=== PATIENT | female | born 1960 | race Caucasian/White ===

== ENCOUNTER 2016-12-08 08:14 | Emergency (ER) | payer BC, OTHER ==
[2016-12-08] MEDS ORDERED: KETOROLAC 30 MG/ML VIAL IM ONE (08:52)
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
[2016-12-08] MEDS ORDERED: HYDROCODONE/APAP 5/325MG TABLET PO ONE (10:23)
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
== END 2016-12-08 10:36 | disposition home or self-care (01) ==
LOC: ER 08:14
DX: S29.019A Strain of muscle and tendon of unspecified wall of thorax, initial encounter (principal); S39.012A Strain of muscle, fascia and tendon of lower back, initial encounter; M85.88 Other specified disorders of bone density and structure, other site; V47.0XXA Car driver injured in collision with fixed or stationary object in nontraffic accident, initial encounter
CPT/HCPCS: 99283; 96372; 99284; 72100; 72072; J1885

== ENCOUNTER 2018-05-22 06:54 | Emergency (ER) | payer BC ==
--- NOTE | 2018-05-22 07:15 | Emergency Department Record ---
History of Present Illness - General Chief complaint: Pain Stated complaint: RIGHT SHOULDER PAIN, SPASMS Time Seen by Provider: 05/22/18 06:59 Source: Patient Mode of Arrival: Ambulatory Limitations: No limitations - History of Present Illness Initial comments: Pt to ED with pain to the right shoulder. Pt is right hand dominate and works ont [employer] for [employer]. 2 years on the job but has a new position over the past weeks. Repetitive motion with arms above head. Has pain in the right upper shoulder area. No fall or injury/trauma. No hx dislocation. Pain radiates from shouler to thumb and index finger. Hx of "carpal tunnel". States "it tingles like when you come in from the cold". Shoulder pain is worse with rotation of the head to the right. No CP or FLAKITA. Pt has been taking Motrin 600mg 4 times a day for a chronic right hip issue. Pt has been see twice for this shoulder complaint at her work clinic by an RN. No other complaints. MD Complaint: Extremity pain Onset/Timin -: Week(s) Location: Right, Shoulder Radiation: Distal Severity scale (1-10): >10 Quality: Sharp Consistency: Constant Improves with: Nothing Worsens with: Exertion, Weight bearing Associated Symptoms: Denies other symptoms - Related Data Previous Rx's Medication Instructions Recorded Diazepam [Valium] 5 mg PO Q8H 4 Days #12 tab 05/22/18 Ibuprofen [Motrin Liq] 600 mg PO Q8H PRN #120 susp 05/22/18 Allergies Allergy/AdvReac Type Severity Reaction Status Date / Time No Known Drug Allergies Allergy Unverified 03/21/18 15:23 Travel Screening - Travel/Exposure Within Last 30 Days Have you traveled within the last 30 days?: No Review of Systems Reviewed: No additional complaints except as noted below Constitutional: Denies: Fever, Night sweats, Weakness Eyes: Denies: Eye pain ENT: Denies: Ear pain Respiratory: Denies: Cough, Wheezes Cardiovascular: Denies: Chest pain, Dyspnea on exertion, Palpitations Gastrointestinal: Denies: Abdominal pain Musculoskeletal: Reports: As per HPI Skin: Denies: Lesions, Rash Neurological: Reports: As per HPI. Denies: Headache Past Medical History - SOCIAL HISTORY Smoking Status: Current every day smoker Alcohol Use: None Drug Use: None - RESPIRATORY Hx Respiratory Disorders: No - CARDIOVASCULAR Hx Cardio Disorders: No - NEURO Hx Seizures: Yes (high school) - GI Comment:: gastric bypass - Hx Genitourinary Disorders: No - ENDOCRINE Hx Diabetes: No Hx Thyroid Disease: No - MUSCULOSKELETAL Hx Musculoskeletal Disorders: Yes Hx Arthritis: Yes - PSYCH Hx Psych Problems: Yes Hx Anxiety: Yes Hx Depression: Yes - HEMATOLOGY/ONCOLOGY Hx Anemia: No Hx Blood Disorders: No Hx Bruising: No Hx Cancer: No Family Medical History Any Significant Family History?: Yes Hx Cancer: Grandparents Physical Exam - General General Appearance: Alert, Oriented x3, Cooperative, Mild distress Limitations: No limitations - Head Head exam: Atraumatic, Normocephalic - Eye Eye exam: Normal appearance, PERRL, Conjunctival injection, EOMI. negative: Nystagmus, Periorbital tenderness Pupils: Normal accommodation - ENT ENT exam: Normal exam, Mucous membranes moist, Normal external ear exam, Normal orophraynx, TM's normal bilaterally - Neck Neck exam: Normal inspection, Full ROM. negative: Lymphadenopathy, Tenderness - Respiratory Respiratory exam: Normal lung sounds bilaterally. negative: Chest wall tenderness, Rales, Rhonchi, Wheezes - Cardiovascular Cardiovascular Exam: Regular rate, Normal rhythm - GI/Abdominal GI/Abdominal exam: Soft, Normal bowel sounds. negative: Distended, Guarding, Rebound, Tenderness - Rectal Rectal exam: Deferred - exam: Deferred - Extremities Extremities exam: Normal inspection, Tenderness, Other (tender with supraspinatous spasm right, no skin lesions. ) Image of Full Body: 1 - tenderness with muscle spasm - Back Back exam: Reports: Normal inspection - Neurological Neurological exam: Alert, CN II-XII intact, Normal gait, Oriented X3, Reflexes normal, Other - Psychiatric Psychiatric exam: Normal affect, Normal mood. negative: Agitated, Anxious - Skin Skin exam: Normal color. negative: Rash Course Vital Signs 05/22/18 06:59 Temperature 97.7 F Pulse Rate 65 Respiratory 20 Rate Blood Pressure 127/91 Pulse Ox 94 L Medical Decision Making - Management Options MDM Management: No Additional Work-up Planned - Data Complexity MDM Data: X-Ray Ordered and/or Reviewed - Medical Decision Making Discharge Instructions: Return to ED if your symptoms worsen or if you have any concerns. Valium as directed. 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 Discussed Motrin at home. Hx gastric bypass. Discussed not taking Motrin in pill form and using liquid dose to avoid ulcers. Will add Valium as muscle relaxer and follow up with work doctor. Do not take Valium while working, driving, or with alcohol. Pt understands and agrees. Disposition Disposition: Discharge Clinical Impression: Muscle spasm of right shoulder Disposition: Home, Self-Care Return To Work/School Note Provided: Yes Condition: (1) Good Prescriptions: Diazepam [Valium] 5 mg PO Q8H 4 Days #12 tab Ibuprofen [Motrin Liq] 600 mg PO Q8H PRN #120 susp PRN Reason: Pain - Mild (1-4) Forms: Patient Portal Access Quality - Quality Measures Quality Measures: N/A - Blood Pressure Screening Does Patient Have Any of the Following: No Blood Pressure Classification: Hypertensive Reading Systolic Measurement: 127 Diastolic Measurement: 91 Screening for High Blood Pressure: < Pre-Hypertensive BP, F/U Documented > [ G8950] Pre-Hypertensive Follow-up Interventions: Follow-up with rescreen every year. ( stop tobacco. Follow with your PMD), Lifestyle modifications. Lifestyle Modification: Dietary Sodium Restriction
[2018-05-22] MEDS ORDERED: DIAZEPAM 5 MG TABLET PO ONE (08:08)
--- NOTE | 2018-05-22 20:40 | RADIOLOGY REPORT ---
EXAM: SHOULDER, RIGHT HISTORY: PAIN. TECHNIQUE: Three views of the right shoulder were performed. FINDINGS: There is osteopenia. No evidence of fracture or dislocation. No lytic or blastic lesion. IMPRESSION: NEGATIVE RIGHT SHOULDER EXAMINATION. JOB NUMBER: [id number] [facility]
== END 2018-05-22 08:22 | disposition home or self-care (01) ==
LOC: ER 06:54
DX: M62.838 Other muscle spasm (principal); M25.511 Pain in right shoulder; F17.210 Nicotine dependence, cigarettes, uncomplicated; Z98.84 Bariatric surgery status
CPT/HCPCS: 99283

== ENCOUNTER 2018-06-01 01:21 | Emergency (ER) | payer BC ==
--- NOTE | 2018-06-01 01:46 | Emergency Department Record ---
History of Present Illness - General Chief complaint: Pain Stated complaint: SHOULDER PAIN-SEEN LAST WEEK Time Seen by Provider: 06/01/18 01:45 Source: Patient Mode of Arrival: Ambulatory Limitations: No limitations - History of Present Illness Initial comments: 57 yo female returns to ED for evaluation of right shoulder pain after returning to upper extremity use while at work. 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 Patient reports a history of arthritis. Patient was seen 1 week ago, underwent radiographs were negative. Patient reports that the Valium she was prescribed helped with her pain symptoms, and the patient reports that she has an appointment with her PCP in 4 days for further evaluation. MD Complaint: Joint pain Onset/Timin -: Week(s) Location: Right History of Same: Yes Radiation: Distal Quality: Aching, Other Consistency: Constant, Getting worse Improves with: Immobilization, Rest Worsens with: Exertion, Other Associated Symptoms: Denies other symptoms - Related Data Previous Rx's Medication Instructions Recorded Ibuprofen [Motrin Liq] 600 mg PO Q8H PRN #120 susp 05/22/18 Diazepam [Valium] 5 mg PO Q8H PRN #10 tab 06/01/18 Allergies Allergy/AdvReac Type Severity Reaction Status Date / Time No Known Drug Allergies Allergy Unverified 03/21/18 15:23 Travel Screening - Travel/Exposure Within Last 30 Days Have you traveled within the last 30 days?: No - Travel Symptoms Symptom Screening: None Review of Systems Constitutional: Denies: Chills, Fever, Malaise, Night sweats Eyes: Denies: Eye discharge, Eye pain ENT: Denies: Congestion, Ear pain Respiratory: Denies: Cough, Dyspnea Cardiovascular: Denies: Chest pain, Dyspnea on exertion Endocrine: Denies: Fatigue, Heat or cold intolerance Gastrointestinal: Denies: Abdominal pain, Nausea, Vomiting Genitourinary: Denies: Incontinence, Retention Musculoskeletal: Reports: Arthralgia. Denies: Back pain, Gout, Joint swelling Skin: Denies: Bruising, Change in color Neurological: Denies: Abnormal gait, Confusion, Headache, Seizure Psychiatric: Denies: Anxiety Hematological/Lymphatic: Denies: Anemia, Blood Clots Past Medical History - SOCIAL HISTORY Smoking Status: Current every day smoker Alcohol Use: None Drug Use: None - RESPIRATORY Hx Respiratory Disorders: No - CARDIOVASCULAR Hx Cardio Disorders: No - NEURO Hx Seizures: Yes (high school) - GI Comment:: gastric bypass - Hx Genitourinary Disorders: No - ENDOCRINE Hx Diabetes: No Hx Thyroid Disease: No - MUSCULOSKELETAL Hx Musculoskeletal Disorders: Yes Hx Arthritis: Yes - PSYCH Hx Psych Problems: Yes Hx Anxiety: Yes Hx Depression: Yes - HEMATOLOGY/ONCOLOGY Hx Anemia: No Hx Blood Disorders: No Hx Bruising: No Hx Cancer: No Family Medical History Any Significant Family History?: Yes Hx Cancer: Grandparents Physical Exam - General General Appearance: Alert, Oriented x3, Cooperative, Mild distress Limitations: No limitations - Head Head exam: Atraumatic, Normocephalic, Normal inspection Head exam detail: negative: Abrasion, Contusion, Olvera's sign, General tenderness, Hematoma, Laceration - Eye Eye exam: Normal appearance. negative: Conjunctival injection, Periorbital swelling, Periorbital tenderness, Scleral icterus - ENT Ear exam: negative: Auricular hematoma, Auricular trauma Nasal Exam: negative: Active bleeding, Discharge, Dried blood, Foreign body Mouth exam: negative: Drooling, Laceration, Muffled voice, Tongue elevation - Neck Neck exam: Normal inspection. negative: Meningismus, Tenderness - Respiratory Respiratory exam: Normal lung sounds bilaterally. negative: Rales, Respiratory distress, Rhonchi, Stridor - Cardiovascular Cardiovascular Exam: Regular rate, Normal rhythm, Normal heart sounds - GI/Abdominal GI/Abdominal exam: Soft. 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 Compartments are soft on examination of the forearm and upper extremity.). negative: Calf tenderness, Pedal edema - Back Back exam: Denies: CVA tenderness (R), CVA tenderness (L) - Neurological Neurological exam: Alert, Normal gait, Oriented X3 - Psychiatric Psychiatric exam: Normal affect, Normal mood - Skin Skin exam: Normal color. negative: Abrasion Type of lesion: negative: abrasion Course Vital Signs 06/01/18 01:29 Temperature 97.6 F Pulse Rate [ 78 Pulse Ox Probe] Respiratory 16 Rate Blood Pressure 125/74 [Left Arm] Pulse Ox 100 - Reevaluation(s) Reevaluation #1: 06/01/18 01:52 Patient's symptoms appear consistent with shoulder strain and overuse. Previous radiographs reviewed from 05/22/18, negative for an acute process. Will prescribe Valium as as directed as well as work release until seen by her PCP for further evaluation. Patient appears stable for discharge at this time. Disposition Disposition: Discharge Clinical Impression: Right shoulder strain Qualifiers: Encounter type: initial encounter Qualified Code(s): S46.911A - Strain of unspecified muscle, fascia and tendon at shoulder and upper arm level, right arm , initial encounter Disposition: Home, Self-Care Condition: (2) Stable Instructions: Rotator Cuff Injury (ED) Additional Instructions: Return to ED if your symptoms worsen or if you have any concerns. Valium as directed, Ibuprofen as prescribed. Follow-up with employee health in 3-5 days. Prescriptions: Diazepam [Valium] 5 mg PO Q8H PRN #10 tab PRN Reason: Spasms Forms: Patient Portal Access Time of Disposition: 01:46 Quality - Quality Measures Quality Measures: N/A - Blood Pressure Screening Does Patient Have Any of the Following: No Blood Pressure Classification: Pre-Hypertensive BP Reading Systolic Measurement: 125 Diastolic Measurement: 74 Screening for High Blood Pressure: < Pre-Hypertensive BP, F/U Documented > [ G8950] Pre-Hypertensive Follow-up Interventions: Referral to alternative/primary care provider.
== END 2018-06-01 01:55 | disposition home or self-care (01) ==
LOC: ER 01:21
DX: S46.911A Strain of unspecified muscle, fascia and tendon at shoulder and upper arm level, right arm, initial encounter (principal); F17.210 Nicotine dependence, cigarettes, uncomplicated; X50.0XXA Overexertion from strenuous movement or load, initial encounter; Y99.0 Civilian activity done for income or pay
CPT/HCPCS: 99282

== ENCOUNTER 2018-08-11 19:27 | Emergency (ER) | payer BC ==
[2018-08-11] MEDS ORDERED: ACETAMINOPHEN W/ CODEINE 300MG/30MG TABLET PO ONE (19:59)
--- NOTE | 2018-08-11 20:03 | Emergency Department Record ---
History of Present Illness - General Chief complaint: Extremity Problem Stated complaint: BICEP PAIN Time Seen by Provider: 08/11/18 19:45 Source: Patient Mode of Arrival: Ambulatory Limitations: No limitations - History of Present Illness Initial comments: The patient is here due to R bicep pain. She has had a hx of R shoulder and Bicep injury for about 3 months and did have an MRI and PT for it. The PT stopped last week and she is scheduled to see an Orthopedic doctor in 11 days thru work comp because she was told she will need an operation. Now she states the pain is worse. Per the patient 2 nights ago she was at home and felt pain to the R bicep and felt a pain like a rubber band snapping. Since there was increased pain to the bicep and slight bruising. There is no weakness or numbness. MD Complaint: Extremity pain Onset/Timin -: Days(s) Location: Right, Arm History of Same: No Radiation: None Severity scale (1-10): >10 Quality: Aching Consistency: Constant Improves with: Nothing Worsens with: Exertion Associated Symptoms: Denies other symptoms - Related Data Home Medications Medication Instructions Recorded Confirmed Last Taken Cholecalciferol (Vitamin D3) 50,000 unit PO WEEKLY 08/11/18 08/11/18 Unknown [Vitamin D] Zolpidem Tartrate [Ambien] 10 mg PO QHS 08/11/18 08/11/18 Unknown Allergies Allergy/AdvReac Type Severity Reaction Status Date / Time No Known Drug Allergies Allergy Verified 08/11/18 19:43 Travel Screening - Travel/Exposure Within Last 30 Days Have you traveled within the last 30 days?: No - Travel/Exposure Within Last Year Have you traveled outside the [place] in the last year?: No - Additonal Travel Details Have you been exposed to anyone with a communicable illness?: No - Travel Symptoms Symptom Screening: None Review of Systems Constitutional: Denies: Chills, Fever Eyes: Denies: Eye discharge ENT: Denies: Congestion, Ear pain Respiratory: Denies: Cough, Dyspnea Past Medical History - SOCIAL HISTORY Smoking Status: Current every day smoker Alcohol Use: Rare Drug Use: None - RESPIRATORY Hx Respiratory Disorders: No - CARDIOVASCULAR Hx Cardio Disorders: No - NEURO Hx Neuro Disorders: Yes Hx Seizures: Yes (high school) - GI Hx GI Disorders: Yes Comment:: gastric bypass - Hx Genitourinary Disorders: No - ENDOCRINE Hx Diabetes: No Hx Thyroid Disease: No - MUSCULOSKELETAL Hx Musculoskeletal Disorders: Yes Hx Arthritis: Yes - PSYCH Hx Psych Problems: Yes Hx Anxiety: Yes Hx Depression: Yes - HEMATOLOGY/ONCOLOGY Hx Hematology/Oncology Disorders: No Hx Anemia: No Hx Blood Disorders: No Hx Bruising: No Hx Cancer: No Family Medical History Any Significant Family History?: No Hx Cancer: Grandparents Physical Exam - General General Appearance: Alert, Oriented x3, Cooperative, No acute distress - Head Head exam: Atraumatic, Normocephalic, Normal inspection - Eye Eye exam: Normal appearance, PERRL - Neck Neck exam: Normal inspection, Full ROM. negative: Tenderness - Respiratory Respiratory exam: Normal lung sounds bilaterally. negative: Respiratory distress - Cardiovascular Cardiovascular Exam: Regular rate, Normal rhythm, Normal heart sounds - Extremities Extremities exam: Normal capillary refill, Tenderness (There is mild tenderness to the R bicep. She is able to flex at the elbow and shoulder with mild pain. The bicep does not appear to be fully ruptured at this time.), Other (The R arm is NVI.). negative: Normal inspection (There is slight bruising and swelling to the R bicep. ) Course Vital Signs 08/11/18 08/11/18 19:37 19:46 Temperature 98.5 F 98.5 F Pulse Rate [ 86 Pulse Ox Probe] Respiratory 16 16 Rate Blood Pressure 136/84 [Left Arm] Pulse Ox 99 99 - Reevaluation(s) Reevaluation #1: I did explain to the patient that she will need to keep the R arm in a sling for a week and use ice to the bicep. Due to having Gastric Bypass she can only take Tylenol for pain. She is to try to get her Ortho appointment moved up to next week due to the need for surgery. 08/11/18 20:08 Disposition Disposition: Discharge Clinical Impression: Injury of tendon of biceps Disposition: Home, Self-Care Condition: (2) Stable Instructions: Arthralgia (ED) Additional Instructions: Please use the arm sling for 7 days and ice the R shoulder and bicep. Please use the TYlenol # 3 as directed and then just Tylenol for pain. Please see your ORthopedic doctor next week for further evaluation. Forms: Patient Portal Access Time of Disposition: 20:03 Quality - Quality Measures Quality Measures: N/A - Blood Pressure Screening View Details: Yes Does Patient Have Any of the Following: No Blood Pressure Classification: Pre-Hypertensive BP Reading Systolic Measurement: 136 Diastolic Measurement: 84 Screening for High Blood Pressure: < Pre-Hypertensive BP, F/U Documented > [ [id number]] Pre-Hypertensive Follow-up Interventions: Referral to alternative/primary care provider.
== END 2018-08-11 20:26 | disposition home or self-care (01) ==
LOC: ER 19:27
DX: S46.201A Unspecified injury of muscle, fascia and tendon of other parts of biceps, right arm, initial encounter (principal); F17.210 Nicotine dependence, cigarettes, uncomplicated; X58.XXXA Exposure to other specified factors, initial encounter
CPT/HCPCS: 99282

== ENCOUNTER 2018-11-06 13:00 | Inpatient (IN) | payer BC ==
[2018-11-22] MEDS ORDERED: FAMOTIDINE 20MG TABLET PO ONE (06:00)
[2018-11-22] MEDS ORDERED: METOCLOPRAMIDE 10 MG TABLET PO ONE (06:00)
[2018-11-22] MEDS ORDERED: CELECOXIB 100 MG CAPSULE PO ONE (06:00)
[2018-11-22] MEDS ORDERED: CEFAZOLIN 2 Gram 2 GM/50 ML BAG IVPB ONE (06:00)
[2018-11-22] MEDS ORDERED: MECLIZINE 25 MG TABLET PO ONE (06:00)
[2018-11-29] MEDS ORDERED: CEFAZOLIN 2 Gram 2 GM/50 ML BAG IVPB ONE (06:00)
[2018-11-29] MEDS ORDERED: MECLIZINE 25 MG TABLET PO ONE (06:00)
[2018-11-29] MEDS ORDERED: FAMOTIDINE 20MG TABLET PO ONE (06:00)
[2018-11-29] MEDS ORDERED: METOCLOPRAMIDE 10 MG TABLET PO ONE (06:00)
[2018-11-29] MEDS ORDERED: CELECOXIB 100 MG CAPSULE PO ONE (06:00)
[2018-11-29 13:25] LABS: HEMATOCRIT 29.8 % (35.0-47.0); HEMOGLOBIN 8.5 gm/dl (11.6-16.0)
[2018-11-29] MEDS ORDERED: NALOXONE 0.4 MG/1 ML VIAL IVP PRN (13:30)
[2018-11-29] MEDS ORDERED: SENNOSIDES/DOCUSATE SODIUM UD CAPSULE PO PRN (13:30)
[2018-11-29] MEDS ORDERED: MAGNESIUM HYDROXIDE 30 ML UDC PO PRN (13:30)
[2018-11-29] MEDS ORDERED: HYDROMORPHONE HCL 2 MG/ML VIAL IV PRN (13:30)
[2018-11-29] MEDS ORDERED: AL HYDROX/MAG HYDROX 30ML UD PO PRN (13:30)
[2018-11-29] MEDS ORDERED: TRAMADOL HCL 50 MG TABLET PO PRN ×2 (13:30)
[2018-11-29] MEDS ORDERED: ZOLPIDEM TARTRATE 5 MG TABLET PO PRN (13:30)
[2018-11-29] MEDS ORDERED: ONDANSETRON HCL IV 4 MG/2 ML VIAL IVP PRN (13:30)
[2018-11-29] MEDS ORDERED: DIPHENHYDRAMINE HCL 25 MG CAPSULE PO PRN (13:30)
[2018-11-29] MEDS ORDERED: METOCLOPRAMIDE HCL 10 MG/2 ML VIAL IVP PRN (13:30)
[2018-11-29] MEDS ORDERED: HYDROCODONE/APAP 5/325MG TABLET PO PRN (13:33)
[2018-11-29] MEDS ORDERED: OXYCODONE HCL/APAP 5MG/325MG TABLET PO PRN (13:33)
[2018-11-29] MEDS: HYDROCODONE/APAP 5/325MG TABLET PO PRN (14:13)
[2018-11-29 14:28] LABS: ABO GROUP O; ANTIBODY SCREEN NEGATIVE (NEGATIVE); RH TYPE POSITIVE
[2018-11-29] MEDS: RINGERS SOLUTION,LACTATED 1,000 ML IV SCH (14:32)
[2018-11-29] MEDS ORDERED: ACETAMINOPHEN 1,000 MG/100 ML BTL IV ONE (14:37)
[2018-11-29] MEDS ORDERED: RINGERS SOLUTION,LACTATED 1,000 ML IV PRN (16:19)
--- NOTE | 2018-11-29 17:22 | Rehab Evaluation ---
Patient Information - Patient Information Diagnosis: R Hip OA Ordered Treatment: PT Evaluate and Treat Status: Initial Evaluation Surgery: Yes (R DAMIAN) Date of Surgery: 11/29/18 History: Detail (Pt. reports history of hip degenerative changes.) Past Med/Cheryl Hx Detail: Detail (Pt. reports recent R RTC (August 2018) repair with a three pound weight resitriction currently. Pt. has had multiple knee scopes R. Pt. notes history of low blood pressure.) Past Medical/Surgical Hx: PAST MEDICAL/SURGICAL HISTORY Past Surgical History shoulder sx bilat CTR gastric bypass hyst right knee scope PMH - Respiratory Hx Respiratory Disorders No PMH - Cardiovascular Hx Cardiovascular Disorders No Exercise Tolerance Good PMH - Neuro Hx Neurological Disorders Yes Hx Seizures Yes: high school PMH - GI Hx Gastrointestinal Disorders Yes Hx Gastroesophageal Reflux Yes: from motrin takes tums with relief Comment: gastric bypass PMH - Hx Genitourinary Disorders No Comment: S/P hyst PMH - Endocrine Hx Endocrine Disorders No Hx Diabetes No Hx Thyroid Disease No PMH - Musculoskeletal Hx Musculoskeletal Disorders Yes Hx Arthritis Yes PMH - Psych Hx Psychiatric Problems Yes Hx Anxiety Yes Hx Depression Yes PMH - Hematology/Oncology Hx Hematology/Oncology No Disorders Hx Anemia No Hx Blood Disorders No Hx Bruising No Hx Cancer No Premorbid Status: Detail (Slowly progressive.) Social History: Detail (Pt. works for [employer], is currently on worker's compensation for her shoulder. Pt. is to stay ~ two weeks with her daughter following her DAMIAN , then stay another two weeks with her son. Both daughter and son live in a ranch-style home with handicap accessible bathrooms. Pt. has a front wheeled walker, single point cane, commode, and reports she will have two steps to ascend to enter the home.) Precautions: [place], Fall (Posterior lateral hip precautions following DAMIAN) - Time With Patient Total Time Spent With Patient (Min): 60 Treatment Procedures: Detail (Physical Therapy Evaluation Completed. Pt. was left supine with call light available, B IPC, cryo right hip, nursing was notified of pt.'s response to upright positioning. Given pt.'s PMH of multiple knee scopes on ipsilateral side, recent R RTC repair affecting bed mobility, poor understanding of hip precautions, independent living after first 2-4 weeks , and with evolving characteristics of low hemoglobin and hypotensive response to seated positioning, the evaluation complextity is rated at moderate.) Subjective Information - Subjective Information Per Patient (Pt. was supine with semi-reclined head rest at start of evaluation. Pt. reported 3/10 pain to start. She denied SOB, dizziness, nausea, and could feel and move her toes. Pt. was A&O x3 and wanted to try to stand and relieve "pressure" at her hip. Pt. is having OP PT at [facility] in [place].) Objective Data - Pain Pain Present: Yes Pain Intensity: 3 Pain Scale Used: Numeric (1 - 10) - Mental Status Patient Orientation: Oriented x3 - Visual Perception Appears within normal limits for therapeutic activities - ROM Other (Pt. has limited AROM for the right shoulder secondary to weakness from recent RTC repair. Pt. was not assessed for active Right hip ROM secondary to DAMIAN and precautions. LLE and LUE were WFL actively all planes.) - Strength/Tone Other (RUE 3+/5 grossly secondary to pain. LUE 5/5. LLE 5/5. RLE not tested for break testing.) - Coordination Appears within normal limits for therapeutic activities - Bed Mobility Needs Assist (Pt. required min assist x1 and constant VC to appropriately perform bed mobility. PT held patients right leg and cue pt. to avoid forward trunk lean when transitioning from supine to seated (right side of bed). Pt. required multiple cues to flex her right knee and avoid SLR with seated pivot transfer. Pt. became dizzy with BP drop upon seated (no longer than 2 minutes) and agreed to lay back in bed. Vitals were taken once pt. was supine and BP was found stable by nursing and SPO2 was steady at 97%. Pt. required mod assist x2 with repositioning to head of bed once supine via towel slide transfer.) - Transfers Needs Assist (Pt. was not assessed for sit to stand transfer due to subjective complaints of dizziness once seated and BP drop.) - Balance Balance Sitting: Fair (Pt. required multiple VC once seated to avoid breaking her hip precaution and exhibited excessive left lateral shift.) Balance Standing: Poor (Not assessed.) - Sensation Intact - Gait Detail (Not assessed due to hypotensive response to seated positioning.) - ADL's/IADL's Detail (Not assessed.) - Special Tests No Therapy Assessment - Therapy Assessment Detail (Pt. exhibits poor safety awareness, right sided (LE and UE) weakness limiting effective bed mobility, poor tolerance to upright positioning secondary to hypotensive response.) Patient Education - Patient Education Teaching Topic: Equipment Use (Pt. was instructed to contact her family to bring her AD she will use at home for practice. Pt. was instructed on hip precautions and prevention.), Exercise/Activity, Precautions Teaching Method: Discussion, Demonstration Teaching Recipient: Patient Barriers To Learning: None Problem List - Problem List Physical Therapy Problem List: Detail (1) UE and LE weakness limiting bed mobility/transfers. 2) Inability to assess ambulation due to hypotensive response to sitting. 3) Poor safety awareness. 4) Dependent on VC to avoid breaking hip precautions.) Goals - Goals Physical Therapy Goals: 1) Pt. will be independent with bed mobility and transfers. 2) Pt. will independently ambulate household distances with appropriate AD without gait deviation or increased fall risk. 3) Pt. will appropriately ambulate over two steps using AD without LOB. 4) Pt. will demonstrate good understanding of body positioning to avoid breaking hip precautions. 5) Pt. will be independent with intial exercises for HEP. Prognosis - Prognosis Good Plan - Plan Physical Therapy Plan: Pt. will be seen 1-2x per day for inpatient PT until all goals met for safe D/C to home environment.
[2018-11-29] MEDS: FERROUS SULFATE 325 MG TAB PO SCH ×2 (17:45→21:50)
[2018-11-29] MEDS: CEFAZOLIN 2 Gram 2 GM/50 ML BAG IVPB SCH (19:50)
[2018-11-29] MEDS: OXYCODONE HCL/APAP 5MG/325MG TABLET PO PRN (19:55)
[2018-11-29] MEDS: ASPIRIN 325 MG TAB ENTERIC-COATED PO SCH (21:49)
[2018-11-30] MEDS: OXYCODONE HCL/APAP 5MG/325MG TABLET PO PRN ×3 (00:03→09:12)
[2018-11-30] MEDS: CEFAZOLIN 2 Gram 2 GM/50 ML BAG IVPB SCH ×2 (03:15→10:41)
[2018-11-30] MEDS: RINGERS SOLUTION,LACTATED 1,000 ML IV SCH (05:23)
[2018-11-30 06:47] LABS: HEMATOCRIT 29.1 % (35.0-47.0); HEMOGLOBIN 8.5 gm/dl (11.6-16.0); MEAN CELL VOLUME 76.8 fl (81-97); MEAN CORPUSCULAR HEMOGLOBIN 22.4 pg (27-33); MEAN CORPUSCULAR HGB CONC 29.2 g/dl (32-36); MEAN PLATELET VOLUME 8.9 fl (7.4-10.4); PLATELET COUNT 423 K/uL (130-400); RED BLOOD COUNT 3.79 M/uL (3.80-5.40); RED CELL DISTRIBUTION WIDTH 29.7 % (11.5-14.5); WHITE BLOOD COUNT W/O DIFF 7.1 K/uL (4.2-12.2)
[2018-11-30] MEDS: FERROUS SULFATE 325 MG TAB PO SCH (09:12)
[2018-11-30] MEDS: ASPIRIN 325 MG TAB ENTERIC-COATED PO SCH (09:12)
--- NOTE | 2018-11-30 10:10 | Physical Therapy Tx Note ---
Physical Therapy Tx Note - Treatment Note Tolerated: Good Total Time Spent With Patient: 30 Physical Therapy Tx Note: Detail (The patient was in bed when PT arrived and was in a sidelying position when PT arrived. The patient required minimal assist for support of R LE to return from sidelying to seated position. The patient was independent with sit to and from stand transfer. The patient ambulated WBAT on the R LE with front wheeled walker independently a distance of 80 feet x 1. The patient ambulated on 3 stairs with folded walker and one railing using proper technique with supervision for safety. The patient required minimal assist to lift R foot into bed with sit to supine. The patient was shown how to use a strap to lift R LE into bed. Patient reports she will have family available to assist her at home. The patient completed THR exercise program independently including: ankle pumps, gluteal sets, hamstring sets, quad sets, hip abduction, heelslides. The patient has met all inpatient goals and is discharged from inpatient PT. The patient is to continue with outpatient PT.) Physical Therapy Problem List: Detail (1) UE and LE weakness limiting bed mobility/transfers. 2) Inability to assess ambulation due to hypotensive response to sitting. 3) Poor safety awareness. 4) Dependent on VC to avoid breaking hip precautions.) Physical Therapy Goals: 1) Pt. will be independent with bed mobility and transfers. (Goal Met- patient able to use strap to lift R LE if needed with sit to supine). 2) Pt. will independently ambulate household distances with appropriate AD without gait deviation or increased fall risk.(Goal Met). 3) Pt. will appropriately ambulate over two steps using AD without LOB. ( Goal Met) . 4) Pt. will demonstrate good understanding of body positioning to avoid breaking hip precautions. (Goal Met). 5) Pt. will be independent with intial exercises for HEP. (Goal Met) Physical Therapy Plan: The patient is discharged from inpatient PT and is to continue with outpatient PT.
--- NOTE | 2018-11-30 10:40 | Operative Note ---
DATE OF SURGERY: 11/29/2018 Surgeon: Rogers Dao D.O. Referring physician: Mandie Nguyen N.P. PREOPERATIVE DIAGNOSIS: Primary osteoarthritis of the right hip. POSTOPERATIVE DIAGNOSIS: Primary osteoarthritis of the right hip. OPERATION: Right total hip arthroplasty. Anesthesia: Spinal. PROCEDURE: This 58-year-old female was taken to the operating room and placed in the supine position on the operating room table. After spinal anesthesia was induced, she was then placed in the left lateral decubitus position with all bony prominences well padded and the head well secured. The patient auto positioned her right shoulder and was comfortable in its position. The patient was secured perpendicular to the table and the right hip was then prepped with Hibiclens and draped in the usual sterile fashion. All scrubbed personnel wore personal isolation suits. A lateral hip incision was made in the right hip, dissecting down through the skin and subcutaneous tissue. Hemostasis was obtained with the electrocautery. We dissected down to the tensor, which was then identified, a puncture hole made in it and then split in line with the skin incision. The gluteus titus was divided to expose the short rotators of the hip. A self-retaining hip retractor was placed. We then divided the short rotators and a capsulotomy was performed to expose the hip joint. Rosalva pins were used as retractors. One was placed superior to the acetabulum, one posterior superior, one posterior inferior. Once these had been positioned, we made a jose on the greater trochanter and measured to the proximal pin, this distance restored at the completion of the procedure. The hip was dislocated, the neck amputated and a Cobra retractor was placed anteriorly. Remnants of the labrum were removed, osteophytes also removed from the hip. The transverse acetabular ligament was transected and we then began reaming with a 46 mm reamer, reaming in 1 mm increments to the base of the condyloid notch and a size 52 was seen to be the appropriate size. Subsequently, a size 52 Trident cup was impacted into place and secure fixation was noted with the hip at about 40 degrees of abduction and approximately 20 degrees of anteversion. The trial liner was subsequently placed. We then used a box osteotome to cut the proximal femur. The waste hand was initially used, followed by alternating [id number] technique up to a size 7 broach, which was countersunk. A calcar reamer was used and subsequently a size 8 was placed and the trial reduction was accomplished, first with a 0 and because we had reamed to the base of the condyloid notch, we needed extra length and ended up placing the 7.5 mm head, which restored the hip to its previous length. The hip was then taken through a range of motion with excellent stability being identified with flexion to 120, internal rotation to approximately 60 to 70 degrees with wide abduction and external rotation with no instability. The hip was then dislocated and all trial components were removed. A size 36 mm 0 degree X3 Trident cup was impacted into place, followed by the insertion of the size 8 Secur-Fit collared femoral component and a 36 mm +7.5 Biolox head. The hip was then again reduced and measured and taken through range of motion and again stability was noted. The hip was copiously irrigated with pulse lavage lactated Ringer's solution. The short rotators were reattached through drill holes through the greater trochanter and securely tied. The hip retractor was removed. Tensor gluteus titus closed with #2 Vicryl, the subcutaneous tissue closed with 0 Vicryl, and the skin was stapled. The patient taken to the recovery room in satisfactory condition. GROSS PATHOLOGY: This patient demonstrated severe osteoarthritis of the right hip. We reamed to the base of the condyloid notch and got excellent bleeding bone, but removed some bone in the process. The final components inserted were a Panda size 8 Secur-Fit collared femoral component, 52 mm Trident cup, and a 36 mm +7.5 Biolox head, and a 36 mm 0 degree Trident cup X3 liner was used. [facility]
--- NOTE | 2018-11-30 11:49 | Rehab Evaluation ---
Patient Information - Patient Information Diagnosis: R Hip OA Ordered Treatment: OT Evaluate and Treat Status: Initial Evaluation Surgery: Yes (R DAMIAN) Date of Surgery: 11/29/18 History: Detail (Pt. reports history of hip degenerative changes.) Past Med/Cheryl Hx Detail: Detail (Pt. reports recent R RTC (August 2018) repair with a three pound weight restriction currently. Pt. has had multiple knee scopes R. Pt. notes history of low blood pressure.) Past Medical/Surgical Hx: PAST MEDICAL/SURGICAL HISTORY Past Surgical History shoulder sx bilat CTR gastric bypass hyst right knee scope PMH - Respiratory Hx Respiratory Disorders No PMH - Cardiovascular Hx Cardiovascular Disorders No Exercise Tolerance Good PMH - Neuro Hx Neurological Disorders Yes Hx Seizures Yes: high school PMH - GI Hx Gastrointestinal Disorders Yes Hx Gastroesophageal Reflux Yes: from motrin takes tums with relief Comment: gastric bypass PMH - Hx Genitourinary Disorders No Comment: S/P hyst PMH - Endocrine Hx Endocrine Disorders No Hx Diabetes No Hx Thyroid Disease No PMH - Musculoskeletal Hx Musculoskeletal Disorders Yes Hx Arthritis Yes PMH - Psych Hx Psychiatric Problems Yes Hx Anxiety Yes Hx Depression Yes PMH - Hematology/Oncology Hx Hematology/Oncology No Disorders Hx Anemia No Hx Blood Disorders No Hx Bruising No Hx Cancer No Premorbid Status: Detail (Pt lives alone in a second floor apartment with a flight of stairs and one railing at the entrance. She has a tub/shower combination with a seat and a standard height toilet with a riser. No grab bars are present in the bathroom. She is Ind with all ADLs and IADLs and works at . She is off currently due to rotator cuff surgery. She has a 2 wheeled walker, straight cane, tub seat and toilet riser. She will be staying with her daughter and then her son for 3 weeks following discharge.) Social History: Detail (Supportive family.) Precautions: [place], Fall (Posterior lateral hip precautions following DAMIAN), Other (total hip precautions.) - Time With Patient Total Time Spent With Patient (Min): 45 Treatment Procedures: Detail (OT eval low complexity) Subjective Information - Subjective Information Per Patient Objective Data - Pain Pain Present: Yes (02/03) - Mental Status Patient Orientation: Oriented x3 - Visual Perception Appears within normal limits for therapeutic activities - ROM Not within normal limits (Right shoulder flexion limited to approx. 145 due to recent RTC surgery. Remaining marilee UE AROM WNL.) - Strength/Tone Not within normal limits (Right shoulder not tested due to recent surgery, right elbow 3+/5, right heel cutter 4+/5, left UE 4+/5.) - Coordination Appears within normal limits for therapeutic activities - Bed Mobility Independent (Ind with supine to sit.) - Transfers Independent (Ind with sit to stand from EOB, chair and commode.) - Balance Balance Sitting: Good Balance Standing: Good - Sensation Intact - Gait Detail (Pt ambulating in room with 2 wheeled walker Indly.) - ADL's/IADL's Detail (Pt educated and able to demonstrate learning of modified LE dressing techniques while maintaining total hip precautions including donning sweatpants , socks and slip on shoes as well as doffing shoes and socks using bowling ball engraver and sock aid. Pt decided to purchase a bowling ball engraver. Pt educated re: shower and kitchen modifications and safety, pt verbalized understanding.) Therapy Assessment - Therapy Assessment Detail (Pt is safe and Ind with modified LE dressing techniques using adaptive equipment while maintaining total hip precautions.) Problem List - Problem List Physical Therapy Problem List: Detail (1) UE and LE weakness limiting bed mobility/transfers. 2) Inability to assess ambulation due to hypotensive response to sitting. 3) Poor safety awareness. 4) Dependent on VC to avoid breaking hip precautions.) Occupational Therapy Problem List: Detail (No current IP OT problems identified. ) Goals - Goals Physical Therapy Goals: 1) Pt. will be independent with bed mobility and transfers. (Goal Met- patient able to use strap to lift R LE if needed with sit to supine). 2) Pt. will independently ambulate household distances with appropriate AD without gait deviation or increased fall risk.(Goal Met). 3) Pt. will appropriately ambulate over two steps using AD without LOB. ( Goal Met) . 4) Pt. will demonstrate good understanding of body positioning to avoid breaking hip precautions. (Goal Met). 5) Pt. will be independent with intial exercises for HEP. (Goal Met) Occupational Therapy Goals: No current IP OT goals identified. Prognosis - Prognosis Good Plan - Plan Physical Therapy Plan: The patient is discharged from inpatient PT and is to continue with outpatient PT. Occupational Therapy Plan: No further IP OT recommended. Thank you for this referral.
[2018-11-30] MEDS ORDERED: LIDOCAINE 2% MDV (20MG/ML) 20ML VIAL IV ONE (12:59)
[2018-11-30] MEDS ORDERED: PROPOFOL 10 MG/ML VIAL IV ONE (12:59)
[2018-11-30] MEDS ORDERED: FENTANYL PF 100MCG/2ML VIAL IV ONE (12:59)
[2018-11-30] MEDS ORDERED: MIDAZOLAM HCL 2MG/2ML VIAL IV ONE (12:59)
[2018-11-30] MEDS: HYDROCODONE/APAP 5/325MG TABLET PO PRN (13:12)
[2018-11-30] MEDS ORDERED: ACETAMINOPHEN 325 MG TAB PO PRN (13:30)
--- NOTE | 2018-12-03 10:50 | Discharge Summary ---
DATE OF ADMISSION: 11/29/2018 DATE OF DISCHARGE: 11/30/2018 SURGEON: Rogers Dao DO ADMITTING DIAGNOSIS: Osteoarthritis of the right hip. DISCHARGE DIAGNOSIS: Osteoarthritis of the right hip. OPERATIVE PROCEDURE: Elective total hip arthroplasty. HISTORY OF PRESENT ILLNESS: This 58-year-old female was admitted to the hospital for elective total hip arthroplasty. She tolerated the operative procedure well, had the drain removed the first postoperative day and cleared physical therapy. She did not show any signs of DVT. Expected amount of pain, controlled by Percocet. The patient, when questioned about her right shoulder, stated she was not having any pain in her right shoulder and it was progressing well and no change from preoperative status. The patient will be discharged with outpatient physical therapy. She was instructed to wear her ANN hose during the day and remove them at night. She will take 1 325 aspirin daily for two weeks and she will take Percocet 5/325 mg 1 every 4 hours p.r.n. pain. She will also continue with her home iron therapy and she will have her iron hemoglobin checked by her primary care physician. The routine wound care instructions were given. She is to follow up on 12/12 in the [facility] for wound evaluation and staple removal. Should she have any problems prior to being seen, she was instructed to call my office. ALTHEA
== END 2018-11-30 13:50 | disposition home or self-care (01) | DRG 470 ==
LOC: MEDSURG 11-29 09:22
PROVIDERS: ADMIT Orthopaedic Surgery; ATTEND Orthopaedic Surgery
PROC: 0SR904A Replacement of Right Hip Joint with Ceramic on Polyethylene Synthetic Substitute, Uncemented, Open Approach (ICD-10-PCS; principal; 2018-11-29 12:30)
DX: M16.11 Unilateral primary osteoarthritis, right hip (principal); D50.9 Iron deficiency anemia, unspecified
CPT/HCPCS: 85014; 85018; 85025; 85610; 86850; 86900; 86901; 97110; 97530; C1776; J7120

== ENCOUNTER 2019-09-05 07:03 | Day surgery (SDC) | payer BC ==
[2019-09-05] MEDS ORDERED: FENTANYL PF 100MCG/2ML VIAL IV ONE (07:04)
[2019-09-05] MEDS ORDERED: LIDOCAINE 2% MDV (20MG/ML) 20ML VIAL IV ONE (07:04)
[2019-09-05] MEDS ORDERED: PROPOFOL 10 MG/ML VIAL IV ONE (07:04)
--- NOTE | 2019-09-05 14:50 | Operative Note ---
OPERATION: ESOPHAGOGASTRODUODENOSCOPY with photo. PREOPERATIVE DIAGNOSIS: Dysphagia and heartburn. POSTOPERATIVE DIAGNOSES: 1. LA grade D esophagitis. 2. Status post Yunior-en-Y. PROCEDURE: After informed consent was obtained from the patient, she was placed in the left lateral decubitus position in the endoscopy suite, sedated and monitored by the department of anesthesia. A well-lubricated [id number] gastroscope was placed in the posterior oropharynx under direct visualization and passed to the proximal esophagus, advanced through the proximal, mid, and distal esophagus. In the distal esophagus, there were linear and confluent ulcerations that affected the entire circumference of the distal esophagus. There were severe ulcerations of the GE junction. There was a small pouch consistent with a Yunior-en-Y but the yunior limb appeared unremarkable. J-turn view was not performed in the small pouch. The endoscope was removed from the patient with no new findings noted. RECOMMENDATIONS: I will start the patient on Protonix 40 mg twice daily, repeat upper endoscopy in 8 weeks. She should avoid tobacco products. As always, thank you for allowing me to participate in the healthcare of your patients. ALTHEA
== END 2019-09-05 08:15 | disposition home or self-care (01) ==
LOC: HOP 07:03
PROVIDERS: ATTEND Internal Medicine Gastroenterology
DX: R13.10 Dysphagia, unspecified (principal); R12 Heartburn; K25.9 Gastric ulcer, unspecified as acute or chronic, without hemorrhage or perforation; Z98.890 Other specified postprocedural states
CPT/HCPCS: 43235; 00731; J3010

== ENCOUNTER 2019-11-07 09:00 | Day surgery (SDC) | payer BC ==
[2019-11-07] MEDS ORDERED: PROPOFOL 10 MG/ML VIAL IV ONE (09:01)
[2019-11-07] MEDS ORDERED: LIDOCAINE 2% MDV (20MG/ML) 20ML VIAL IV ONE (09:01)
--- NOTE | 2019-11-08 09:30 | Operative Note ---
OPERATION: ESOPHAGOGASTRODUODENOSCOPY with biopsy. PREOPERATIVE DIAGNOSIS: Esophageal ulcer followup. POSTOPERATIVE DIAGNOSES: 1. Ulcerative esophagitis, improving. 2. Distal esophageal stricture. 3. Status post Yunior-en-Y with healthy appearing Yunior limb and gastric pouch. PROCEDURE: After informed consent was obtained from the patient, she was placed in the left lateral decubitus position in the endoscopy suite, sedated and monitored by the department of anesthesia. A well-lubricated [id number] gastroscope was placed in the posterior oropharynx under direct visualization and passed to the proximal esophagus. The endoscope was advanced through the proximal, mid, and distal esophagus. There were ulcerative changes and narrowing at the GE junction. These changes appeared to be somewhat improved from previous. There is a small gastric pouch that appeared unremarkable as did the anastomosis and the Yunior limb. Biopsies were obtained from the ulcerated segment of the distal esophagus. No excessive bleeding was noted. The endoscope was removed from the patient. RECOMMENDATIONS: The patient should clearly continue on a [id number] PPI. I am unclear whether she is taking this appropriately but should clearly be taking it before breakfast and before dinner. I will repeat her upper endoscopy in 8 weeks to assess healing. As always, thank you for allowing me to participate in the healthcare of your patients. ALTHEA
== END 2019-11-07 10:42 | disposition home or self-care (01) ==
LOC: HOP 09:00
PROVIDERS: ATTEND Internal Medicine Gastroenterology
DX: Z09 Encounter for follow-up examination after completed treatment for conditions other than malignant neoplasm (principal); K22.10 Ulcer of esophagus without bleeding; R13.10 Dysphagia, unspecified; K22.2 Esophageal obstruction; Z98.84 Bariatric surgery status